=== PATIENT | male | born 1990 | race African-American/Black ===

== ENCOUNTER 2022-04-09 11:43 | Emergency (ER) | payer OTHER ==
[2022-04-09 11:52] VITALS: BP 129/65; PULSE 63; RESP 16; TEMP 99.1; BMI 48.8
[2022-04-09] MEDS ORDERED: KETOROLAC TROMETHAMINE 30 MG/1 ML VIAL IM ONE (12:10)
[2022-04-09] MEDS ORDERED: LIDOCAINE 5% TOPICAL PATCH TP ONE (12:11)
[2022-04-09] MEDS ORDERED: METHOCARBAMOL 750 MG TAB PO ONE (12:11)
[2022-04-09] MEDS ORDERED: KETOROLAC TROMETHAMINE 30 MG/1 ML VIAL ONE (12:21)
[2022-04-09] MEDS ORDERED: LIDOCAINE 5% TOPICAL PATCH ONE (12:21)
[2022-04-09] MEDS ORDERED: METHOCARBAMOL 500 MG TABLET ONE (12:21)
[2022-04-09] MEDS ORDERED: LIDOCAINE PATCH REMOVAL MC SCH (22:00)
== END 2022-04-09 13:53 | disposition home or self-care (01) ==
LOC: FER 11:43
PROC: 3E0233Z Introduction of Anti-inflammatory into Muscle, Percutaneous Approach (ICD-10-PCS; principal; 2022-04-09)
DX: M25.512 Pain in left shoulder (principal); M54.50 Low back pain, unspecified; M25.552 Pain in left hip; V43.52XA Car driver injured in collision with other type car in traffic accident, initial encounter
CPT/HCPCS: 72100-TC-FY; 73030-TC-LT-FY; 73502-TC-LT-FY; 99284-25